=== PATIENT | female | born 1960 | race Caucasian/White ===

== ENCOUNTER 2025-02-19 08:58 | Inpatient (IN) | payer MEDICARE, OTHER ==
[~2025-02-19] VITALS: Ht 160 cm; Wt 66.7 kg
[2025-02-19] MEDS ORDERED: MIDAZOLAM HCL 2 MG/2ML VIAL ONE (10:13)
[2025-02-19] MEDS ORDERED: OXYMETAZOLINE HCL NASAL SPRAY 30 ML BOTTLE NS ONE (10:13)
[2025-02-19] MEDS ORDERED: FENTANYL PF 100MCG/2ML AMPUL ONE (10:13)
[2025-02-19] MEDS ORDERED: SUGAMMADEX SODIUM 200 MG/2 ML VIAL IV ONE (10:13)
[2025-02-19] MEDS ORDERED: ROCURONIUM BROMIDE 50 MG/5 ML ONE (10:14)
[2025-02-19] MEDS ORDERED: CEFAZOLIN 1 GM ONE (10:25)
[2025-02-19] MEDS ORDERED: GENTAMICIN 80 MG/2 ML VIAL ONE (10:25)
[2025-02-19] MEDS ORDERED: LIDOCAINE 2%-EPI 1:100,000 30 ML VIAL ONE (10:25)
[2025-02-19] MEDS ORDERED: POLYMYXIN B SULFATE 500,000 UNITS ONE (10:25)
[2025-02-19] MEDS ORDERED: BUPIVACAINE 0.5 % PF 150 MG/30 ML VIAL ONE (10:25)
[2025-02-19] MEDS ORDERED: dexaMETHasone SOD PHOSPHATE 1 ML ONE (10:26)
[2025-02-19] MEDS ORDERED: VANCOMYCIN 1 GM VIAL ONE (10:26)
[2025-02-19] MEDS ORDERED: VECURONIUM 10 MG VIAL ONE (10:29)
[2025-02-19] MEDS ORDERED: PIPERACILLIN /TAZOBACTAM 3.375 G in IV D5W 50 ML IV SCH (12:00)
[2025-02-19 16:00] VITALS: BP 106/61; TEMP 97.5; O2SAT 99
[2025-02-19] MEDS ORDERED: ONDANSETRON HCL/PF 4 MG/2 ML VIAL IVP PRN (16:30)
[2025-02-19] MEDS: ZOSYN IVPB 3.375 G in IV D5W 50ml IV SCH (17:51)
[2025-02-19] MEDS: IV NS 0.9% 1,000 ML IV PRN (17:52)
[2025-02-19] MEDS ORDERED: ACETAMINOPHEN 325 MG TABLET PO PRN (18:00)
[2025-02-19] MEDS: HYDROMORPHONE 1 MG/1 ML DISP.SYRIN IV PRN (18:20)
[2025-02-19] MEDS: CHLORHEXIDINE GLUCONATE 15 ML UDC MM SCH (18:20)
[2025-02-19 20:00] VITALS: BP 96/60; TEMP 98.1; O2SAT 96
[2025-02-19] MEDS: VANCOMYCIN 1 GM in IV D5W 250ml IV SCH (22:30)
[2025-02-20] MEDS: P-EPHED SUL/LORATADINE (24H) 1 TAB.SR.24H PO SCH (08:38)
[2025-02-20] MEDS: MENTHOL/CETYLPYRD (CEPACOL) 1 LOZ LOZENGE PO PRN (08:38)
[2025-02-20 10:54] VITALS: BP 105/54; TEMP 98.1; O2SAT 96
[2025-02-20] MEDS: CODEINE/PROMETHAZINE HCL 5 ML UDC PO ONE (12:30)
== END 2025-02-20 16:52 | disposition home or self-care (01) | DRG 141 ==
LOC: DS 08:58 → MED 09:02
PROVIDERS: ADMIT Internal Medicine; ATTEND Internal Medicine
PROC: 0NSR04Z Reposition Maxilla with Internal Fixation Device, Open Approach (ICD-10-PCS; 2025-02-19)
PROC: 09UR07Z Supplement Left Maxillary Sinus with Autologous Tissue Substitute, Open Approach (ICD-10-PCS; 2025-02-19)
PROC: 09UQ07Z Supplement Right Maxillary Sinus with Autologous Tissue Substitute, Open Approach (ICD-10-PCS; 2025-02-19)
PROC: 0NUR07Z Supplement Maxilla with Autologous Tissue Substitute, Open Approach (ICD-10-PCS; 2025-02-19)
PROC: 09BR0ZZ Excision of Left Maxillary Sinus, Open Approach (ICD-10-PCS; 2025-02-19)
PROC: 09BQ0ZZ Excision of Right Maxillary Sinus, Open Approach (ICD-10-PCS; 2025-02-19)
PROC: 0KX10ZZ Transfer Facial Muscle, Open Approach (ICD-10-PCS; 2025-02-19)
PROC: 0WB30ZZ Excision of Oral Cavity and Throat, Open Approach (ICD-10-PCS; 2025-02-19)
PROC: 0N5R0ZZ Destruction of Maxilla, Open Approach (ICD-10-PCS; principal; 2025-02-19 11:30)
DX: S02.40DA Maxillary fracture, left side, initial encounter for closed fracture (principal); K12.2 Cellulitis and abscess of mouth; D16.4 Benign neoplasm of bones of skull and face; D16.5 Benign neoplasm of lower jaw bone; J32.9 Chronic sinusitis, unspecified; E11.9 Type 2 diabetes mellitus without complications; S02.40CA Maxillary fracture, right side, initial encounter for closed fracture; S02.609A Fracture of mandible, unspecified, initial encounter for closed fracture; I10 Essential (primary) hypertension; M27.2 Inflammatory conditions of jaws; E78.5 Hyperlipidemia, unspecified; M84.9 Disorder of continuity of bone, unspecified; K13.79 Other lesions of oral mucosa; M85.9 Disorder of bone density and structure, unspecified; M60.9 Myositis, unspecified; M81.0 Age-related osteoporosis without current pathological fracture; X58.XXXA Exposure to other specified factors, initial encounter; Y92.9 Unspecified place or not applicable
CPT/HCPCS: 82962-TC; 87070-TC; 87075-TC; 87102-TC; A4223; A4338; C1713; G0378; J0360; J0690; J1100; J1171; J1580; J1885; J2250; J2405; J2543; J2704; J3010; J3373; J3490; J7030; J7050; J7060